=== PATIENT | female | born 1940 | race Caucasian/White ===

== ENCOUNTER 2021-03-05 10:21 | Inpatient (IN) | payer MEDICARE ==
[~2021-03-05] VITALS: Ht 170.2 cm; Wt 95.3 kg
[2021-03-05 10:48] LABS: BASOPHIL 0 % (0-2); EOSINOPHIL 0.2 % (0-7); HCT 39.2 % (37.0-47.0); HGB 12.9 g/dl (12.5-16.0); LYMPHOCYTE 23.6 % (15-48); MCH 30.5 pg (25.0-31.0); MCHC 32.9 g/dL (32.0-36.0); MCV 92.7 fL (78.0-100.0); MONOCYTE 5.7 % (0-12); MPV 10.7 fL (6.0-9.5); NRBC 0; PLT 175 K/uL (150-400); RBC 4.23 M/uL (4.20-5.40); RDW 13.2 % (11.5-14.0)
[2021-03-05 11:05] LABS: BILIRUBIN - TOTAL 0.5 mg/dL (0.2-1.0); BUN/CREAT RATIO (CALC) 10.4 RATIO; CREATININE 0.67 mg/dL (0.51-0.95); GLOBULIN (CALCULATION) 3.7 g/dL; POTASSIUM 3.4 mmol/L (3.5-5.1); TOTAL PROTEIN 6.7 g/dL (6.4-8.2)
[2021-03-05] MEDS ORDERED: ELAVIL25 MG PO (12:17)
[2021-03-05] MEDS ORDERED: PRINIVIL20 MG PO (12:18)
[2021-03-05] MEDS ORDERED: ZINC50 M1 PO (12:18)
[2021-03-05] MEDS ORDERED: PEPCID AC20 MG PO (12:18)
[2021-03-05] MEDS ORDERED: COREG 6.25MG6.25 MG PO (12:19)
[2021-03-05] MEDS ORDERED: NORVASC5 MG PO (12:19)
[2021-03-05] MEDS ORDERED: MELATONIN5 M2 PO (12:20)
[2021-03-05] MEDS ORDERED: ALL DAY ALLERGY10 M2 PO (12:20)
[2021-03-05] MEDS ORDERED: ASCORBIC ACID500 MG PO (12:21)
[2021-03-05] MEDS ORDERED: VITAMIN D325 MC2 PO (12:22)
[2021-03-05] MEDS ORDERED: ONE DAILY WITH1 EACH PO (12:24)
[2021-03-05] MEDS ORDERED: ARMOUR THYROID180 MG PO (12:24)
[2021-03-06 06:11] LABS: BASOPHIL 0 % (0-2); EOSINOPHIL 0 % (0-7); HCT 34.8 % (37.0-47.0); HGB 11.8 g/dl (12.5-16.0); LYMPHOCYTE 19.3 % (15-48); MCH 30.7 pg (25.0-31.0); MCHC 33.9 g/dL (32.0-36.0); MCV 90.6 fL (78.0-100.0); MONOCYTE 7.1 % (0-12); MPV 10.8 fL (6.0-9.5); NRBC 0.6; PLT 169 K/uL (150-400); RBC 3.84 M/uL (4.20-5.40); RDW 12.8 % (11.5-14.0); WBC 3.4 K/uL (4.0-10.5)
[2021-03-06 07:03] LABS: ALBUMIN 2.5 g/dL (3.4-5.0); BILIRUBIN - TOTAL 0.2 mg/dL (0.2-1.0); BUN/CREAT RATIO (CALC) 22.4 RATIO; CREATININE 0.58 mg/dL (0.51-0.95); POTASSIUM 4.2 mmol/L (3.5-5.1); TOTAL PROTEIN 5.5 g/dL (6.4-8.2)
[2021-03-07 06:35] LABS: BASOPHIL 0.2 % (0-2); EOSINOPHIL 0 % (0-7); HCT 36.8 % (37.0-47.0); LYMPHOCYTE 13.8 % (15-48); MCH 29.8 pg (25.0-31.0); MCHC 32.6 g/dL (32.0-36.0); MCV 91.3 fL (78.0-100.0); MONOCYTE 4.8 % (0-12); MPV 10.9 fL (6.0-9.5); NEUTROPHIL 80.9 % (41-80); NRBC 0; PLT 218 K/uL (150-400); RBC 4.03 M/uL (4.20-5.40); RDW 12.8 % (11.5-14.0); WBC 6.4 K/uL (4.0-10.5)
[2021-03-07 07:54] LABS: ALBUMIN 2.4 g/dL (3.4-5.0); BILIRUBIN - TOTAL 0.2 mg/dL (0.2-1.0); BUN/CREAT RATIO (CALC) 28.8 RATIO; CREATININE 0.59 mg/dL (0.51-0.95); GLOBULIN (CALCULATION) 3.6 g/dL; POTASSIUM 4.5 mmol/L (3.5-5.1)
--- NOTE | 2021-03-07 13:37 | NUR ---
03/07/21 Ms. Watts lives in the home of her daughter, Samantha Watts. She has a rw and s. chair. Referrals have been made to [facility] for 02 at 2 L in anticipation of discharge for 03/08.
[2021-03-08] MEDS ORDERED: VENTOLIN HFA IN18 GM INH (10:26)
[2021-03-08] MEDS ORDERED: PANTOPRAZOLE SO40 MG PO (10:26)
[2021-03-08] MEDS ORDERED: DEXAMETHASONE 2M2 MG PO (10:26)
[2021-03-08] MEDS ORDERED: CEFDINIR300 MG PO (10:26)
[2021-03-08] MEDS ORDERED: METFORMIN HCL500 MG PO (10:44)
== END 2021-03-08 11:54 | disposition home health service (06) | DRG 871 ==
LOC: FER 10:21 → FMS 11:54 → FER 11:58 → FMS 03-07 14:36
PROVIDERS: Emergency Medicine; ADMIT Internal Medicine
PROC: 05HY33Z Insertion of Infusion Device into Upper Vein, Percutaneous Approach (ICD-10-PCS; principal; 2021-03-05)
PROC: XW033E5 Introduction of Remdesivir Anti-infective into Peripheral Vein, Percutaneous Approach, New Technology Group 5 (ICD-10-PCS; 2021-03-05)
PROC: 8E0ZXY6 Isolation (ICD-10-PCS; 2021-03-07)
DX: A41.89 Other specified sepsis (principal); U07.1 COVID-19; J96.01 Acute respiratory failure with hypoxia; J12.82 Pneumonia due to coronavirus disease 2019; J18.9 Pneumonia, unspecified organism; I10 Essential (primary) hypertension; E11.65 Type 2 diabetes mellitus with hyperglycemia; K59.00 Constipation, unspecified; E03.9 Hypothyroidism, unspecified; I25.10 Atherosclerotic heart disease of native coronary artery without angina pectoris; K21.9 Gastro-esophageal reflux disease without esophagitis; F17.200 Nicotine dependence, unspecified, uncomplicated; Z90.710 Acquired absence of both cervix and uterus; Z90.49 Acquired absence of other specified parts of digestive tract; Z98.51 Tubal ligation status; Z88.5 Allergy status to narcotic agent; Z88.8 Allergy status to other drugs, medicaments and biological substances; Z98.890 Other specified postprocedural states; I25.2 Old myocardial infarction; Z80.3 Family history of malignant neoplasm of breast
CPT/HCPCS: 36415; 36600; 71045; 80053; 82728; 82803; 82962; 83036; 84145; 85025; 94010; 94640; 94667; 94668; 94760; 94762; C9399; J0696; J1100; J1642; J1650; J7030; J7050; J8540; U0002